=== PATIENT | male | born 1945 | race American Indian/Alaskan Native ===

== ENCOUNTER 2017-12-12 13:18 | Emergency (ER) | payer MEDICARE ==
--- NOTE | 2017-12-12 14:02 | Emergency Department Report ---
<UDAY MCWILLIAMS - Last Filed: 12/12/17 15:43> ED Palpitations HPI - General Chief Complaint: Arrhythmia/Palpitations Stated Complaint: HEART BEATING FAST Time Seen by Provider: 12/12/17 14:02 Source: patient, RN notes reviewed Mode of arrival: Ambulatory Limitations: No Limitations - History of Present Illness Initial Comments: This is a pleasant 72-year-old gentleman who is not known to this provider previously. Primary care Dr.: Dr. Perry Cardiology: Dr. Shasta Voss Ace and has a past history of newly diagnosed A. fib, also has a history of stroke, hypertension, obstructive sleep apnea, type 2 diabetes, SVT, Isabella on the following medications: Atenolol, 25 mg daily at bedtime, Elaquis, 5 mg twice daily. Patient presents to the ER with complaint of painless palpitations. He reports compliance with his medications. He denies dietary indiscretions. He denies stimulant ingestants. He denies cough, chest pain, shortness of breath, irritative or obstructive urinary symptoms. His palpitations started today, they're intermittent, does not radiate anywhere , did not have exacerbating or relieving factors. He has mild chronic lower extremity edema which is not a new worsened or different, and has occasional shortness of breath on laying flat, but this is chronic. MD Complaint: rapid heart beat, "heart racing", palpitations -: Gradual Context: occured during rest Arrythmia History: atrial fibrillation, on anti-coagulants Associated Symptoms: denies other symptoms - Related Data Previous Rx's Medication Instructions Recorded Last Taken Type Magnesium Oxide 400 mg PO BID #20 tablet 12/12/17 Unknown Rx Allergies Allergy/AdvReac Type Severity Reaction Status Date / Time No Known Allergies Allergy Verified 12/12/17 13:43 ED Review of Systems ROS: Stated complaint: HEART BEATING FAST Other details as noted in HPI Constitutional: denies: fever, malaise Eyes: denies: vision change ENT: denies: epistaxis Respiratory: denies: cough Cardiovascular: palpitations, edema (chronic). denies: chest pain Gastrointestinal: denies: abdominal pain, nausea, vomiting Genitourinary: denies: dysuria Musculoskeletal: denies: arthralgia Skin: denies: lesions Neurological: denies: weakness Psychiatric: denies: anxiety ED Past Medical Hx - Past Medical History Previous Medical History?: Yes Hx Hypertension: Yes Hx Diabetes: Yes Additional medical history: A. FIB - Surgical History Past Surgical History?: Yes Additional Surgical History: back surgery, cervical fusion - Social History Smoking Status: Never Smoker Substance Use Type: None - Medications Home Medications: Home Medications Medication Instructions Recorded Confirmed Last Taken Type Magnesium Oxide 400 mg PO BID #20 tablet 12/12/17 Unknown Rx ED Physical Exam - General Limitations: No Limitations General appearance: alert, in no apparent distress - Head Head exam: Present: atraumatic, normocephalic - Eye Eye exam: Present: normal appearance, EOMI. Absent: nystagmus - ENT ENT exam: Present: normal exam, normal orophraynx, mucous membranes moist, normal external ear exam - Neck Neck exam: Present: normal inspection, full ROM - Respiratory Respiratory exam: Present: normal lung sounds bilaterally. Absent: respiratory distress - Cardiovascular Cardiovascular Exam: Present: tachycardia, irregular rhythm, normal heart sounds. Absent: systolic murmur, diastolic murmur, rubs, gallop - GI/Abdominal GI/Abdominal exam: Present: soft. Absent: distended, tenderness, guarding, rebound, rigid, pulsatile mass - Rectal Rectal exam: Present: deferred - Extremities Exam Extremities exam: Present: normal inspection, full ROM, pedal edema, other (2+ pulses noted in the bilateral upper, lower extremities. Compartments soft. No long bony tenderness. The pelvis is stable.). Absent: tenderness, calf tenderness - Back Exam Back exam: Present: normal inspection, full ROM. Absent: tenderness, CVA tenderness (R), paraspinal tenderness, vertebral tenderness - Neurological Exam Neurological exam: Present: alert, oriented X3, CN II-XII intact, other ( Extraocular movements intact. Tongue midline. No facial droop. Facial sensation intact to light touch in the V1, V2, V3 distribution bilaterally. 5 and 5 strength in 4 extremities.. Sensation is intact to light touch in 4 extremities.). Absent: motor sensory deficit - Psychiatric Psychiatric exam: Present: normal affect, normal mood - Skin Skin exam: Present: warm, dry, intact, normal color. Absent: rash ED Course Vital Signs 12/12/17 12/12/17 12/12/17 13:37 14:04 14:06 Temperature 98.3 F Pulse Rate 134 H 119 H 102 H Respiratory 18 12 14 Rate Blood Pressure 118/75 O2 Sat by Pulse 98 Oximetry 12/12/17 12/12/17 12/12/17 14:08 14:10 14:12 Temperature Pulse Rate 114 H 118 H 111 H Respiratory 21 25 H 12 Rate Blood Pressure O2 Sat by Pulse 99 98 98 Oximetry 12/12/17 12/12/17 12/12/17 14:14 14:16 14:17 Temperature Pulse Rate 117 H 117 H 120 H Respiratory 11 L 14 Rate Blood Pressure 132/70 O2 Sat by Pulse 97 Oximetry 12/12/17 12/12/17 12/12/17 14:18 14:20 14:22 Temperature Pulse Rate 115 H 119 H 114 H Respiratory 14 12 22 Rate Blood Pressure 132/70 132/70 132/70 O2 Sat by Pulse 100 97 100 Oximetry 12/12/17 12/12/17 12/12/17 14:24 14:26 14:28 Temperature Pulse Rate 102 H 110 H 102 H Respiratory 15 15 11 L Rate Blood Pressure 132/70 132/70 132/70 O2 Sat by Pulse 99 99 98 Oximetry 12/12/17 12/12/17 12/12/17 14:30 14:31 14:33 Temperature Pulse Rate 113 H 88 99 H Respiratory 14 16 14 Rate Blood Pressure O2 Sat by Pulse 98 98 99 Oximetry 12/12/17 12/12/17 12/12/17 14:35 14:37 14:39 Temperature Pulse Rate 96 H 102 H 94 H Respiratory 17 10 L 15 Rate Blood Pressure 132/98 O2 Sat by Pulse 98 97 98 Oximetry 12/12/17 14:52 Temperature Pulse Rate 106 H Respiratory Rate Blood Pressure 129/79 O2 Sat by Pulse Oximetry - Reevaluation(s) Reevaluation #1: 12/12/17 14:51 Differential diagnosis, including but not limited to: Atrial flutter/ fibrillation, electrolyte derangement, pneumonia, urinary tract infection Assessment and plan: 72-year-old gentleman who is afebrile with reassuring vital signs, pleasant and in no distress, with A. fib with RVR. He has received IV Lopressor 2. Additional IV Lopressor ordered. Laboratory studies , urinalysis pending at this time. He is on systemic anticoagulation. If patient can be appropriately rate controlled in the emergency department, she would be suitable to be discharged with follow-up with his outpatient farm hand. Reevaluation #2: 12/12/17 15:10 The patient's rate is now in the high 90s. Contacted cardiology and discussed with Rosmery Vargas. Patient is also found to be hypomagnesemic. We will replete the patient's magnesium. Cardiology like the patient to follow-up next week, either on Friday or Friday , to adjust patient's medications. Cardiology does not specifically recommend any changes to patient's current medications. Reevaluation #3: 12/12/17 15:44 Patient continues to be in no distress. Tachycardia has improved. ED Medical Decision Making - Lab Data Result diagrams: 12/12/17 14:14 12/12/17 14:14 Vital Signs 12/12/17 12/12/17 12/12/17 13:37 14:04 14:06 Temperature 98.3 F Pulse Rate 134 H 119 H 102 H Respiratory 18 12 14 Rate Blood Pressure 118/75 O2 Sat by Pulse 98 Oximetry 12/12/17 12/12/17 12/12/17 14:08 14:10 14:12 Temperature Pulse Rate 114 H 118 H 111 H Respiratory 21 25 H 12 Rate Blood Pressure O2 Sat by Pulse 99 98 98 Oximetry 12/12/17 12/12/17 12/12/17 14:14 14:16 14:17 Temperature Pulse Rate 117 H 117 H 120 H Respiratory 11 L 14 Rate Blood Pressure 132/70 O2 Sat by Pulse 97 Oximetry 12/12/17 12/12/17 12/12/17 14:18 14:20 14:22 Temperature Pulse Rate 115 H 119 H 114 H Respiratory 14 12 22 Rate Blood Pressure 132/70 132/70 132/70 O2 Sat by Pulse 100 97 100 Oximetry 12/12/17 12/12/17 12/12/17 14:24 14:26 14:28 Temperature Pulse Rate 102 H 110 H 102 H Respiratory 15 15 11 L Rate Blood Pressure 132/70 132/70 132/70 O2 Sat by Pulse 99 99 98 Oximetry 12/12/17 12/12/17 12/12/17 14:30 14:31 14:33 Temperature Pulse Rate 113 H 88 99 H Respiratory 14 16 14 Rate Blood Pressure O2 Sat by Pulse 98 98 99 Oximetry 12/12/17 12/12/17 12/12/17 14:35 14:37 14:39 Temperature Pulse Rate 96 H 102 H 94 H Respiratory 17 10 L 15 Rate Blood Pressure 132/98 O2 Sat by Pulse 98 97 98 Oximetry Labs 12/12/17 12/12/17 14:14 14:17 WBC 4.9 RBC 4.49 Hgb 11.5 L Hct 35.7 MCV 79 L MCH 26 L MCHC 32 RDW 16.4 H Plt Count 259 Lymph % (Auto) 28.9 [place] % (Auto) 7.0 Eos % (Auto) 3.1 Baso % (Auto) 0.8 Lymph # 1.4 [place] # 0.3 Eos # 0.2 Baso # 0.0 Add Manual Diff Complete Seg Neutrophils % 60.2 Seg Neutrophils # 3.0 PT 14.9 INR 1.12 APTT 28.6 - EKG Data EKG shows normal: sinus rhythm Rate: bradycardia - EKG Data When compared to previous EKG there are: previous EKG unavailable 12/12/17 14:50 Atrial flutter, 121 beats per minutes, borderline left axis, not having chest pain, QTC prolonged, this EKG is not an ST elevation myocardial infarction - Radiology Data Radiology results: pending Critical Care Time: Yes Critical care time in (mins) excluding proc time.: 35 Critical care attestation.: If time is entered above; I have spent that time in minutes in the direct care of this critically ill patient, excluding procedure time. ED Disposition Clinical Impression: Atrial fibrillation, rapid, Hypomagnesemia Disposition: DC-01 TO HOME OR SELFCARE Is pt being admited?: No Does the pt Need Aspirin: No Condition: Stable Instructions: Palpitations (ED) Additional Instructions: Take the magnesium supplementation as directed. Follow up with your farm hand next week, either on Friday or Friday. Please contact the office phone number at the following phone number: [phone]. When contacting the office, please let the office staff know that we have person spoken to her farm hand, and they would like to follow-up next week for expedited appointment. Return to the ER right away with fevers, chills , lethargy, irritability, projectile vomiting, change in mental status, confusion, inability to tolerate liquid feeds, vomiting blood, defecating blood. Prescriptions: Magnesium Oxide 400 mg PO BID #20 tablet Referrals: LISA LEE MD [Staff Physician] - 3-5 Days <MATTHEW DOBBS - Last Filed: 12/12/17 16:56> ED Medical Decision Making - Lab Data Result diagrams: 12/12/17 14:14 12/12/17 14:14 - Medical Decision Making UA neg for infection Pt will be d/c'ed as Per Dr Mcwilliams d/c planning ED Disposition Is pt being admited?: No Does the pt Need Aspirin: No Time of Disposition: 16:55
[2017-12-12] MEDS ORDERED: LOPRESSOR IV ONE ×3 (14:12→14:47)
[2017-12-12 14:41] LABS: INR 1.12 (0.87-1.13); Partial Thromboplastin Time 28.6 Sec. (24.2-36.6)
[2017-12-12 14:41] LABS: Hematocrit 35.7 % (35.5-45.6); Hemoglobin 11.5 gm/dl (11.8-15.2); Lymphocytes % (Auto) 28.9 % (13.4-35.0); Mean Corpuscular HGB Conc 32 % (32-34); Mean Corpuscular Hemoglobin 26 pg (28-32); Mean Corpuscular Volume 79 fl (84-94); Platelet Count 259 K/mm3 (140-440); Red Blood Count 4.49 M/mm3 (3.65-5.03); Red Cell Distribution Width 16.4 % (13.2-15.2)
[2017-12-12 14:42] LABS: Basophils % (Auto) 0.8 % (0.0-1.8); Eosinophils # (Auto) 0.2 K/mm3 (0.0-0.4); Eosinophils % (Auto) 3.1 % (0.0-4.3); Lymphocytes # (Auto) 1.4 K/mm3 (1.2-5.4); Monocytes # (Auto) 0.3 K/mm3 (0.0-0.8)
[2017-12-12 15:03] LABS: BUN/Creatinine Ratio 20; Blood Urea Nitrogen 22 mg/dL (9-20); Calcium 8.9 mg/dL (8.4-10.2); Hemolysis Index 25
--- NOTE | 2017-12-12 15:36 | XRay Report ---
FINAL REPORT EXAM: XR CHEST 1V AP HISTORY: afibw rvr TECHNIQUE: Single, portable chest x-ray. PRIORS: None. FINDINGS: Mild cardiomegaly, which may be due in part to portable technique. Lungs are normally expanded, without significant vascular congestion. No focal consolidation or apparent pneumothorax. Bony thorax grossly unremarkable. IMPRESSION: 1. Cardiomegaly. 2. No acute consolidation.
[2017-12-12] MEDS ORDERED: MAGNESIUM SULFATE 2GM/50ML 2 GM/50 ML BAG IV ONE (16:00)
[2017-12-12 16:03] LABS: Bilirubin,Urine NEG (Negative); Blood,Urine SM (Negative); Color,Urine Yellow (Yellow); Mucus,Urine FEW /HPF; Urobilinogen,Urine < 2.0 mg/dL (<2.0)
[2017-12-12 17:38] VITALS: BP 155/129
== END 2017-12-12 17:46 | disposition home or self-care (01) ==
LOC: ED 13:18
DX: I48.91 Unspecified atrial fibrillation (principal); E83.42 Hypomagnesemia; I10 Essential (primary) hypertension; E11.9 Type 2 diabetes mellitus without complications
CPT/HCPCS: 36415; 71045; 80048; 81001; 83735; 84443; 85025; 85610; 85730; 96374; 96375; 99291; J3475